=== PATIENT | female | born 1960 | race Caucasian/White ===

== ENCOUNTER 2020-10-20 05:38 | Emergency (ER) | payer OTHER ==
[~2020-10-20] VITALS: Ht 157.5 cm; Wt 62.1 kg
[2020-10-20] MEDS ORDERED: HYDROCODON-ACE1 EA10 PO (09:59)
[2020-10-20] MEDS ORDERED: ZOFRAN4 MG PO (09:59)
[2020-10-20] MEDS ORDERED: FLOMAX0.4 MG PO (09:59)
== END 2020-10-20 10:10 | disposition home or self-care (01) ==
LOC: ED 05:38
DX: N13.2 Hydronephrosis with renal and ureteral calculous obstruction (principal)
CPT/HCPCS: 74176; 80053; 81001; 85025; 96375; 96376; 99284-25; J1885; J2270; J2405; J2765; J3010; J7030; J7121